=== PATIENT | female | born 2000 | race Caucasian/White ===

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

== ENCOUNTER 2019-05-30 17:08 | Inpatient (IN) | payer BC, OTHER ==
[~2019-05-30] VITALS: Ht 182.9 cm; Wt 56.2 kg
[2019-05-30 17:09] VITALS: BP 122/70
[2019-05-30] MEDS ORDERED: HUMALOG100 UNIT/1 SUBQ (17:24)
[2019-05-30] MEDS ORDERED: CELEXA 10 MG TA10 M1 PO (17:24)
[2019-05-30] MEDS ORDERED: FLONASE 0.05%50 MCG NASAL (17:26)
[2019-05-30 17:36] LABS: URINE BILIRUBIN NEGATIVE (Negative); URINE BLOOD NEGATIVE (Negative); URINE CLARITY CLEAR; URINE COLOR YELLOW; URINE GLUCOSE-RANDOM* 3+ (Negative); URINE KETONES 2+ (Negative); URINE LEUKOCYTES-REFLEX NEGATIVE (Negative); URINE NITRITE-REFLEX NEGATIVE (Negative); URINE PROTEIN (DIPSTICK) NEGATIVE (Negative); URINE UROBILINOGEN 0.2 E.U./dl (0.2-1.0)
[2019-05-30 18:10] LABS: CALCIUM 9.3 mg/dL (8.5-10.1); POTASSIUM 4.4 mmol/L (3.5-5.1)
[2019-05-30 18:16] LABS: TOTAL BILIRUBIN 0.7 mg/dL (<0.1-1.0); TOTAL PROTEIN 7.7 g/dL (6.4-8.2)
[2019-05-30 18:33] LABS: BE(vivo) -9.9 mmol/L (-2 to +3); PCO2 VENOUS 30.5 mmHg (41.0-51.0); PO2 VENOUS 88.4 mmHg (35.0-45.0)
[2019-05-30 20:11] VITALS: BP 109/72
[2019-05-30 20:55] VITALS: BP 106/52
[2019-05-30 21:30] VITALS: BP 105/88
--- NOTE | 2019-05-30 21:46 | NUR ---
Pt admitted to ICU room 236 for DKA. Blood sugar down to 190 on arrival to unit at 2130. Pt alert, oriented x4, no nausea, vomitting, or pain. Will have stat labs drawn and proceed with DKA protocol based on new lab.
[2019-05-30 22:32] LABS: MAGNESIUM 1.6 mg/dL (1.8-2.4); PHOSPHORUS 2.7 mg/dL (2.5-4.9)
[2019-05-30 22:34] LABS: CREATININE 0.7 mg/dL (0.6-1.0); PHOSPHORUS 2.7 mg/dL (2.5-4.9)
[2019-05-30 22:37] LABS: POTASSIUM 3.1 mmol/L (3.5-5.1)
[2019-05-30 22:55] VITALS: BP 104/64
[2019-05-30 23:00] VITALS: BP 94/64
[2019-05-31] VITALS (16 sets, daily range): BP systolic 82–102; BP diastolic 38–68
[2019-05-31 03:32] LABS: ALBUMIN 2.8 g/dL (3.4-5.0); CREATININE 0.7 mg/dL (0.6-1.0); POTASSIUM 3.2 mmol/L (3.5-5.1)
[2019-05-31 06:42] LABS: ALBUMIN 2.7 g/dL (3.4-5.0); CREATININE 0.6 mg/dL (0.6-1.0); PHOSPHORUS 2.5 mg/dL (2.5-4.9); POTASSIUM 3.7 mmol/L (3.5-5.1)
[2019-05-31 10:42] LABS: ALBUMIN 2.7 g/dL (3.4-5.0); CREATININE 0.6 mg/dL (0.6-1.0); PHOSPHORUS 2.8 mg/dL (2.5-4.9); POTASSIUM 3.2 mmol/L (3.5-5.1)
--- NOTE | 2019-05-31 13:15 | NUR ---
Pt is on DKA protocol. Night RN turned insulin gtt off when pt's BS 79 & 88 consecutively @5 & 6 am. The RN told this nurse to check BS prior to breakfast since Anion Gap was closed and BS was under control. 0745-This nurse checked pt's BS. It was 310. This nurse notified hospitalist, Dr. Stephens regarding rebounded BS and changing Fluid. Insulin gtt was resumed @4.5unit, Half dose of pt was received prior to being turned off. This nurse discussed w/ charge nurse, Hanane. Na was 136. So this nurse changed the fluid from D51/2NS +40kcl to 1/2NS @250 per DKA protocol. 1142-Pt's BS DOWN TO 144. NA 136 from the lab, done @10am. K-3.2. kcl 20 mEq was replaced and fluid was changed to 1/2NS +40 mEq KCL. 1230-Dr. Sousa, hospitalist at bedside. Pt told Dr. Sousa that she wanted to go home. Dr. Sousa told this nurse to turn the insulin gtt & IVF off. 1252-BS-75. Turned IVF and insulin gtt.
[2019-05-31] MEDS ORDERED: NOVOLOG100 UNIT/1 SUBQ (14:03)
[2019-05-31] MEDS ORDERED: LANTUS100 UNIT/M SUBQ (14:03)
[2019-05-31 14:28] LABS: CALCIUM 8.4 mg/dL (8.5-10.1); CREATININE 0.7 mg/dL (0.6-1.0); PHOSPHORUS 2.8 mg/dL (2.5-4.9); POTASSIUM 3.5 mmol/L (3.5-5.1)
--- NOTE | 2019-05-31 15:08 | EKG ---
[address] [address] ELECTROCARDIOGRAM REPORT Name: SALVADOR NDIAYE Room #: 236-P [facility] IN M.R.#: [id number] Admission: 05/30/19 Attend Phys: Shant Stephens MD Discharge: 05/31/19 Date of : [birth year] Report #: [id number] THIS REPORT FOR: //name// [facility] ED Test Date: 2019-05-30 Test Time: 18:20:08 Pat Name: SALVADOR NDIAYE Department: Room: [facility] Gender: F Registered Phlebotomist Part Time: DARON : 2000 Requested By: Aaliyah Mcgee Order Number: [id number] MD: Arpan Bennett Measurements Intervals [place] Rate: 91 P: 93 DE: 172 QRS: 82 QRSD: 66 T: 41 QT: 336 QTc: 414 Interpretive Statements Sinus rhythm Left atrial enlargement Date point elevation noted in inferolateral leads not present for clinical correlation suggested Baseline wander in lead(s) V3 Compared to ECG 08/09/2018 17:10:57 point elevation appears to be new Electronically Signed On 05-31-2019 15:07:36 PRINT MANAGER by Arpan Bennett [email or web address] <ELECTRONICALLY SIGNED> By: Arpan Bennett MD 05/31/19 1507 1820 1820 Arpan Bennett MD /EPI
== END 2019-05-31 15:01 | disposition home or self-care (01) | DRG 639 ==
LOC: ER 17:08 → EROBS 19:17 → ICU 21:23
PROVIDERS: Emergency Medicine; Nurse Practitioner; Physician Assistant; ADMIT Internal Medicine
DX: E10.10 Type 1 diabetes mellitus with ketoacidosis without coma (principal); K21.9 Gastro-esophageal reflux disease without esophagitis; M79.7 Fibromyalgia; J45.909 Unspecified asthma, uncomplicated; F41.0 Panic disorder [episodic paroxysmal anxiety]; Z79.899 Other long term (current) drug therapy; Z88.8 Allergy status to other drugs, medicaments and biological substances; Z90.49 Acquired absence of other specified parts of digestive tract; Z80.0 Family history of malignant neoplasm of digestive organs; Z83.3 Family history of diabetes mellitus; Z23 Encounter for immunization
CPT/HCPCS: 10078

== ENCOUNTER 2019-06-30 02:50 | Emergency (ER) | payer BC, OTHER ==
[~2019-06-30] VITALS: Ht 182.9 cm; Wt 54.4 kg
[~2019-06-30 02:50] MED LIST changes: +CELEXA 10 MG TA10 M1 PO; +FLONASE 0.05%50 MCG NASAL; +HUMALOG100 UNIT/1 SUBQ
[2019-06-30] MEDS ORDERED: TOUJEO SOL300 UNIT/1 SUBQ (03:02)
[2019-06-30 03:49] LABS: URINE BLOOD NEGATIVE (Negative); URINE CLARITY CLEAR; URINE COLOR YELLOW; URINE GLUCOSE-RANDOM* 3+ (Negative); URINE KETONES 2+ (Negative); URINE LEUKOCYTES-REFLEX NEGATIVE (Negative); URINE NITRITE-REFLEX NEGATIVE (Negative); URINE PROTEIN (DIPSTICK) NEGATIVE (Negative); URINE UROBILINOGEN 0.2 E.U./dl (0.2-1.0)
[2019-06-30 03:51] LABS: ICTOTEST (BILI CONFIRMATORY) Negative (Negative); URINE BILIRUBIN NEGATIVE (Negative)
[2019-06-30 03:51] LABS: HEMATOCRIT 43.1 % (37.0-47.0); HEMOGLOBIN 14.7 gm/dL (12.0-15.0); MCH 32.3 pg (26.0-34.0); MCHC 34.2 g/dL (28.0-37.0); MCV 94.5 fL (80.0-100.0); PLATELET COUNT 238 thou/uL (150-400); RBC 4.56 mil/uL (4.20-5.00); RDW 14.3 % (10.5-14.5); WBC 3.9 thou/uL (4.0-11.0)
[2019-06-30 03:55] LABS: CALCIUM 9.4 mg/dL (8.5-10.1); CREATININE 0.9 mg/dL (0.6-1.0); POTASSIUM 3.2 mmol/L (3.5-5.1)
[2019-06-30 04:00] LABS: MAGNESIUM 1.8 mg/dL (1.8-2.4); PHOSPHORUS 2.7 mg/dL (2.5-4.9)
[2019-06-30 06:46] VITALS: BP 103/57
== END 2019-06-30 06:47 | disposition home or self-care (01) ==
LOC: ER 02:50
PROVIDERS: Emergency Medicine Emergency Medical Services
DX: E87.6 Hypokalemia (principal); J45.909 Unspecified asthma, uncomplicated; K21.9 Gastro-esophageal reflux disease without esophagitis; M79.7 Fibromyalgia; E10.9 Type 1 diabetes mellitus without complications; F41.9 Anxiety disorder, unspecified; Z90.49 Acquired absence of other specified parts of digestive tract; Z88.8 Allergy status to other drugs, medicaments and biological substances

== ENCOUNTER 2020-03-17 19:14 | Emergency (ER) | payer BC, OTHER ==
[~2020-03-17] VITALS: Ht 182.9 cm; Wt 63.5 kg
[~2020-03-17 19:14] MED LIST changes: +TOUJEO SOL300 UNIT/1 SUBQ
[2020-03-17 20:11] LABS: ABSOLUTE NEUTROPHILS 3.4 thou/uL (1.4-8.2); BASOPHILS 0.5 % (0.0-2.0); EOSINOPHILS 0.2 % (0.0-3.0); HEMATOCRIT 45.9 % (37.0-47.0); HEMOGLOBIN 15.7 gm/dL (12.0-15.0); MCH 31.5 pg (26.0-34.0); MCHC 34.1 g/dL (28.0-37.0); MCV 92.4 fL (80.0-100.0); MONOCYTES 10.6 % (1.0-8.0); PLATELET COUNT 216 thou/uL (150-400); POLYS 69.7 % (36.0-66.0); RBC 4.96 mil/uL (4.20-5.00); RDW 12.8 % (10.5-14.5); WBC 4.9 thou/uL (4.0-11.0)
[2020-03-17 20:22] LABS: CALCIUM 9.3 mg/dL (8.5-10.1); CREATININE 0.8 mg/dL (0.6-1.0); POTASSIUM 3.1 mmol/L (3.5-5.1)
[2020-03-17 20:30] LABS: ALBUMIN 3.9 g/dL (3.4-5.0); TOTAL BILIRUBIN 0.3 mg/dL (0.2-1.0); TOTAL PROTEIN 7.9 g/dL (6.4-8.2)
[2020-03-17] MEDS ORDERED: AUGMENTIN 875-1 EACH PO (21:52)
[2020-03-17 21:57] LABS: URINE BILIRUBIN NEGATIVE (Negative); URINE BLOOD NEGATIVE (Negative); URINE CLARITY CLEAR; URINE COLOR YELLOW; URINE GLUCOSE-RANDOM* 2+ (Negative); URINE KETONES NEGATIVE (Negative); URINE LEUKOCYTES-REFLEX NEGATIVE (Negative); URINE NITRITE-REFLEX NEGATIVE (Negative); URINE PROTEIN (DIPSTICK) TRACE (Negative); URINE SPECIFIC GRAVITY >= 1.030 (1.005-1.035); URINE UROBILINOGEN 0.2 E.U./dl (0.2-1.0)
[2020-03-17] MEDS ORDERED: POTASSIUM20 PO ×2 (22:25→22:40)
[2020-03-17] MEDS ORDERED: LINZESS290 MCG PO (22:41)
[2020-03-17] MEDS ORDERED: ONDANSETRON HCL4 M2 PO (22:41)
[2020-03-17] MEDS ORDERED: TORADOL 10 MG T10 MG PO (22:43)
[2020-03-17 22:58] VITALS: BP 118/80
--- NOTE | 2020-03-18 07:46 | EKG ---
[facility] [place] [address] ELECTROCARDIOGRAM REPORT Name: SALVADOR NDIAYE [id number] Admission: 03/17/20 Attend Phys: Discharge: 03/17/20 Date of : [birth year] Report #: [id number] THIS REPORT FOR: cc: Nuha Klein Beth RNP Santiago, Patrick MD [facility] ~ THIS REPORT FOR: //name// [facility] ED Test Date: 2020-03-17 Test Time: 19:43:57 Pat Name: SALVADOR NDIAYE Department: Room: Gender: F Associate Property Manager: [facility]OTTSDALEXochitl : 2000 Requested By: Kojo Vásquez Order Number: [id number] MD: Jaime Ayers Measurements Intervals [place] Rate: 122 P: 78 VT: 172 QRS: 81 QRSD: 88 T: -82 QT: 359 QTc: 512 Interpretive Statements Sinus tachycardia Consider right atrial enlargement RSR' in V1 or V2, probably normal variant Borderline Q waves in inferior leads Repol abnrm, prob ischemia, anterolateral lds Prolonged QT interval Compared to ECG 05/30/2019 18:20:08 RSR' in V1 or V2 now present Early repolarization now present Possible ischemia now present Prolonged QT interval now present Sinus rhythm no longer present Electronically Signed On 03-18-2020 7:46:24 CDT by Jaime Ayers [email or web address] <ELECTRONICALLY SIGNED> By: Jaime Ayers MD, FAC 03/18/20 0746 42 42 Jaime Ayers MD, [facility] /EPI
--- NOTE | 2020-03-18 07:47 | EKG ---
[facility] [place] [address] ELECTROCARDIOGRAM REPORT Name: SALVADOR NDIAYE Room #: [facility]#: [id number] Admission: 03/17/20 Attend Phys: Discharge: 03/17/20 Date of : [birth year] Report #: [id number] THIS REPORT FOR: cc: Nuha Klein Beth RNP Santiago, Patrick MD [facility] ~ THIS REPORT FOR: //name// [facility] ED Test Date: 2020-03-17 Test Time: 21:54:28 Pat Name: SALVADOR NDIAYE Department: Room: Gender: F Mask Inspector: Larry : 2000 Requested By: Kristin Bolden Order Number: [id number] MD: Jaime Ayers Measurements Intervals [place] Rate: 88 P: 55 [place]: 172 QRS: 78 QRSD: 87 T: 15 QT: 374 QTc: 453 Interpretive Statements Sinus rhythm Nonspecific T abnormalities, anterior leads Compared to ECG 03/17/2020 19:43:57 T-wave abnormality now present Sinus tachycardia no longer present Early repolarization no longer present Possible ischemia no longer present Prolonged QT interval no longer present Electronically Signed On 03-18-2020 7:47:15 CDT by Jaime Ayers [email or web address] <ELECTRONICALLY SIGNED> By: Jaime Ayers MD, FACC 03/18/20 0747 53 53 Jaime Ayers MD, FACC /EPI
== END 2020-03-17 22:58 | disposition home or self-care (01) ==
LOC: ER 19:14
PROVIDERS: Physician Assistant
DX: U07.1 COVID-19 (principal); R07.89 Other chest pain; K59.00 Constipation, unspecified; E87.6 Hypokalemia; J45.909 Unspecified asthma, uncomplicated; K21.9 Gastro-esophageal reflux disease without esophagitis; E10.9 Type 1 diabetes mellitus without complications; Z79.899 Other long term (current) drug therapy; Z88.5 Allergy status to narcotic agent

== ENCOUNTER → 2020-04-14 | Outpatient (CLI) | payer BC, OTHER ==
[~2020-04-14] MED LIST changes: +AUGMENTIN 875-1 EACH PO; +DICYCLOMINE HCL25 GM PO; +LINZESS290 MCG PO; +ONDANSETRON HCL4 M2 PO; +POTASSIUM20 PO; +TOPROL XL25 MG PO; +TORADOL 10 MG T10 MG PO
== END ==
LOC: SJCVCIMAG 13:25
PROVIDERS: ATTEND Internal Medicine
DX: I34.0 Nonrheumatic mitral (valve) insufficiency (principal); I34.1 Nonrheumatic mitral (valve) prolapse

== ENCOUNTER 2020-04-19 14:18 | Emergency (ER) | payer BC, OTHER ==
[~2020-04-19] VITALS: Ht 182.9 cm; Wt 72.6 kg
[~2020-04-19 14:18] MED LIST changes: -DICYCLOMINE HCL25 GM PO; -TOPROL XL25 MG PO
[2020-04-19] MEDS ORDERED: DICYCLOMINE HCL25 GM PO (14:23)
[2020-04-19] MEDS ORDERED: TOPROL XL25 MG PO (14:24)
[2020-04-19 19:34] LABS: BASOPHILS 1.1 % (0.0-2.0); EOSINOPHILS 1.4 % (0.0-3.0); HEMATOCRIT 41.3 % (37.0-47.0); HEMOGLOBIN 13.8 gm/dL (12.0-15.0); LYMPHOCYTES 26.8 % (24.0-44.0); MCH 31.2 pg (26.0-34.0); MCHC 33.4 g/dL (28.0-37.0); MCV 93.5 fL (80.0-100.0); POLYS 59.7 % (36.0-66.0); RBC 4.42 mil/uL (4.20-5.00); RDW 12.7 % (10.5-14.5)
[2020-04-19 19:37] LABS: ANION GAP 10 mmol/L (7-16); BUN 12 mg/dL (7-18); CALCIUM 9.3 mg/dL (8.5-10.1); CHLORIDE 102 mmol/L (98-107); CO2 23 mmol/L (21-32); CREATININE 0.8 mg/dL (0.6-1.0); GLUCOSE 358 mg/dL (74-106); POTASSIUM 4.1 mmol/L (3.5-5.1); SODIUM 135 mmol/L (136-145)
[2020-04-19 19:46] LABS: TROPONIN-I <0.06 ng/mL (<0.06)
[2020-04-19 19:53] LABS: PLATELET COUNT 220 thou/uL (150-400)
[2020-04-19 21:37] VITALS: BP 122/74
--- NOTE | 2020-04-20 07:33 | EKG ---
[facility] [place] [address] ELECTROCARDIOGRAM REPORT Name: SALVADOR NDIAYE Room #: [facility]#: [id number] Admission: 04/19/20 Attend Phys: Discharge: 04/19/20 Date of : [birth year] Report #: [id number] THIS REPORT FOR: cc: Nuha Klein Beth RNP Lundgren, Craig H. MD [facility] THIS REPORT FOR: //name// [facility] ED Test Date: 2020-04-19 Test Time: 14:28:20 Pat Name: SALVADOR NDIAYE Department: Room: Gender: Chlorine Cell Tender: Larry : 2000 Requested By: Tad Bowman Order Number: [id number] : Curtis Bunn Measurements Intervals [place] Rate: 93 P: 73 AR: 149 QRS: 81 QRSD: 80 T: -19 QT: 359 QTc: 447 Interpretive Statements Sinus rhythm Borderline T abnormalities Compared to ECG 03/17/2020 21:54:28 No significant changes Electronically Signed On 04-20-2020 7:33:50 MANAGER APPOINTMENT by Curtis Bunn [email or web address] <ELECTRONICALLY SIGNED> By: Curtis Bunn MD, FACC 04/20/20 0733 1428 1428 Curtis Bunn MD, [facility] /EPI
== END 2020-04-19 21:35 | disposition home or self-care (01) ==
LOC: ER 14:18
PROVIDERS: Emergency Medicine
DX: R07.89 Other chest pain (principal); M79.602 Pain in left arm; F41.9 Anxiety disorder, unspecified; M79.7 Fibromyalgia; J45.909 Unspecified asthma, uncomplicated; E10.9 Type 1 diabetes mellitus without complications; K21.9 Gastro-esophageal reflux disease without esophagitis; Z90.49 Acquired absence of other specified parts of digestive tract; Z79.899 Other long term (current) drug therapy

== ENCOUNTER → 2021-03-07 | Outpatient (CLI) | payer BC, OTHER ==
[~2021-03-07] MED LIST changes: +DICYCLOMINE HCL25 GM PO; +TOPROL XL25 MG PO
== END ==
LOC: ULTRA 11:09
PROVIDERS: ATTEND Nurse Practitioner
DX: N91.2 Amenorrhea, unspecified (principal)

== ENCOUNTER → 2021-07-27 | Outpatient (CLI) | payer BC, OTHER | LOC: SJCVCIMAG 07-21 10:45 | PROVIDERS: ATTEND Internal Medicine | DX: R00.2 Palpitations (principal); F41.9 Anxiety disorder, unspecified; F32.A Depression, unspecified; K21.9 Gastro-esophageal reflux disease without esophagitis; G43.909 Migraine, unspecified, not intractable, without status migrainosus; R00.0 Tachycardia, unspecified; Z87.891 Personal history of nicotine dependence; Z88.8 Allergy status to other drugs, medicaments and biological substances; Z79.899 Other long term (current) drug therapy ==